=== PATIENT | female | born 1995 | race Two or more races ===

== ENCOUNTER → 2025-05-07 | Outpatient (CLI) | payer BC ==
[2025-05-07 08:33] LABS: Hematocrit 43.7 % (36.0-46.0); Hemoglobin 14.9 g/dL (12.2-16.2); Mean Corpuscular Hemoglobin 31.2 pg (28.0-32.0); Mean Corpuscular Volume 91.3 fL (80.0-100.0); Nucleated Red Blood Cells % 0.1 %
[2025-05-07 08:42] LABS: Urine Protein, UAD Negative (Negative)
[2025-05-07 09:11] LABS: Alanine Aminotransferase 15 U/L (7-40); Alkaline Phosphatase 56 U/L (46-116); Anion Gap 10 (5-15); Calcium 10.1 mg/dL (8.7-10.4); Carbon Dioxide 24 mmol/L (20-31); Chloride 104 mmol/L (98-107); Glucose 80 mg/dL (74-106); Potassium 4.0 mmol/L (3.5-5.1); Sodium 138 mmol/L (136-145); Triglycerides 53 mg/dL (< 150)
[2025-05-07 09:12] LABS: Albumin 4.8 g/dL (3.2-4.8); BUN/Creatinine Ratio 14.0 (10.0-20.0); Bilirubin, Total 1.0 mg/dL (0.2-1.0); Blood Urea Nitrogen 12 mg/dL (9-23); Cholesterol 156 mg/dL (< 200); Total Protein 7.3 g/dL (5.7-8.2)
[2025-05-07 09:32] LABS: HDL Cholesterol 61 mg/dL (40-59)
== END | disposition home or self-care (01) ==
LOC: LAB 07:59
PROVIDERS: ATTEND Internal Medicine
DX: L81.8 Other specified disorders of pigmentation (principal); Z00.01 Encounter for general adult medical examination with abnormal findings; Z83.438 Family history of other disorder of lipoprotein metabolism and other lipidemia; Z82.49 Family history of ischemic heart disease and other diseases of the circulatory system
CPT/HCPCS: 36415; 80053; 80061; 81001; 83036; 84439; 84443; 85025; 86703; 86803

== ENCOUNTER 2025-10-08 09:04 | Outpatient (CLI) | payer BC | END 2025-10-08 17:00 | disposition home or self-care (01) | LOC: LAB 09:04 | PROVIDERS: ATTEND Obstetrics & Gynecology | DX: O03.9 Complete or unspecified spontaneous abortion without complication (principal) | CPT/HCPCS: 36415; 84144; 84702 ==

== ENCOUNTER 2025-10-10 06:39 | Outpatient (CLI) | payer BC | END 2025-10-10 17:00 | disposition home or self-care (01) | LOC: LAB 06:39 | PROVIDERS: ATTEND Internal Medicine | DX: O03.9 Complete or unspecified spontaneous abortion without complication (principal) | CPT/HCPCS: 36415; 84702 ==

== ENCOUNTER 2025-10-14 11:28 | Outpatient (CLI) | payer BC | END 2025-10-14 17:00 | disposition home or self-care (01) | LOC: LAB 11:28 | PROVIDERS: ATTEND Obstetrics & Gynecology | DX: O03.9 Complete or unspecified spontaneous abortion without complication (principal) | CPT/HCPCS: 36415; 84702 ==

== ENCOUNTER 2025-10-16 06:52 | Outpatient (CLI) | payer BC | END 2025-10-16 17:00 | disposition home or self-care (01) | LOC: LAB 06:52 | PROVIDERS: ATTEND Obstetrics & Gynecology | DX: O03.9 Complete or unspecified spontaneous abortion without complication (principal) | CPT/HCPCS: 36415; 84144; 84702 ==

== ENCOUNTER 2025-10-27 11:30 | Outpatient (CLI) | payer BC ==
[2025-10-27 13:18] LABS: Hematocrit 43.8 % (36.0-46.0); Hemoglobin 15.2 g/dL (12.2-16.2); Mean Corpuscular Hemoglobin 31.6 pg (28.0-32.0); Mean Corpuscular Volume 91.0 fL (80.0-100.0); Nucleated Red Blood Cells % 0.0 %
[2025-10-27 14:02] LABS: Amphetamine Screen, Urine Neg (NEGATIVE); Barbiturate Scree,Urine Neg (NEGATIVE); Benzodiazephine Screen, Urine Neg (NEGATIVE); Cannabinoid Screen, Urine Neg (NEGATIVE); Cocaine Screen, Urine Neg (NEGATIVE); Opiate Scree,Urine Neg (NEGATIVE); Phencyclidine Screen, Urine Neg (NEGATIVE)
[2025-10-29 02:06] LABS: Chlamydia Trachomatis, NAA Negative (Negative); Neisseria gonorrhoeae, NAA Negative (Negative)
== END 2025-10-27 17:00 | disposition home or self-care (01) ==
LOC: LAB 11:30
DX: O23.40 Unspecified infection of urinary tract in pregnancy, unspecified trimester (principal); N39.0 Urinary tract infection, site not specified; Z11.3 Encounter for screening for infections with a predominantly sexual mode of transmission; Z31.430 Encounter of female for testing for genetic disease carrier status for procreative management; Z20.2 Contact with and (suspected) exposure to infections with a predominantly sexual mode of transmission; Z3A.00 Weeks of gestation of pregnancy not specified
CPT/HCPCS: 36415; 80307; 83036; 84144; 84702; 85025; 86480; 86703; 86762; 86780; 86850; 86900; 86901; 87086; 87340